=== PATIENT | female | born 1995 | race Caucasian/White ===

== ENCOUNTER 2021-10-11 18:50 | Observation (INO) ==
[2021-10-11 20:34] LABS: Bilirubin,Urine Negative (Negative); Blood,Urine Negative (Negative); Clarity,Urine Clear (Clear); Color,Urine Yellow (Yellow); Glucose,Urine (UA) Normal (Normal); Ketones,Urine Negative (Negative); Leukocyte Esterase,Urine Negative (Negative); Mucus,Urine Few per lpf (None-Few); Nitrite,Urine Negative (Negative); Protein,Urine 30 mg/dL (Neg-Trace); RBC,Urine 0-3 per hpf (0-3); Specific Gravity,Urine 1.027 (1.010-1.025); Squamous Epithelial Cell,Urine Few per hpf (None-Few); Urobilinogen,Urine Normal (Normal); WBC,Urine 0-3 per hpf (0-3)
[2021-10-11 21:26] LABS: Basophils % 0.2 %; Eosinophils % 0.5 %; Hematocrit 40.4 % (35.3-44.9); Hemoglobin 13.8 g/dL (11.5-15.4); Immature Granulocytes % 0.2 % (0-4); Lymphocytes # 1.6 K/mcL (0.6-4.6); Lymphocytes % 18.7 %; Mean Corpuscular HGB Conc 34.2 g/dL (31.6-35.5); Mean Corpuscular Hemoglobin 30.4 pg (28.0-33.3); Mean Platelet Volume 9.1 fL (9.4-12.4); Monocytes # 0.7 K/mcL (0.0-1.3); Monocytes % 8.3 %; Platelet Count 294 K/mcL (140-400); Red Blood Count 4.54 M/mcL (3.82-4.97); Red Cell Distribution Width 11.7 % (11.5-14.5); Segmented Neutrophils % 72.1 %; White Blood Count 8.3 K/mcL (4.3-11.1)
[2021-10-11 21:46] LABS: Alanine Aminotransferase 39 Units/L (7-52); Albumin 4.6 g/dL (3.5-5.7); Albumin/Globulin Ratio 1.4 (1.1-2.2); Alkaline Phosphatase 61 Units/L (34-104); Aspartate Amino Transferase 29 Units/L (13-39); BUN/Creatinine Ratio 11 (6-26); Bilirubin,Total 0.3 mg/dL (0.3-1.0); Blood Urea Nitrogen 7 mg/dL (6-20); Calcium 9.7 mg/dL (8.6-10.3); Carbon Dioxide 25 mEq/L (23-29); Chloride 105 mEq/L (98-107); Globulin 3.2 g/dL (2.4-3.5); Glucose 90 mg/dL (70-105); Osmolality,Calculated 282 (280-300); Potassium 3.6 mEq/L (3.5-5.1); Sodium 137 mEq/L (136-145); Total Protein 7.8 g/dL (6.4-8.9); eGFR For African Americans > 60 (> 60); eGFR For Non-African Americans > 60 (> 60)
[2021-10-11] MEDS ORDERED: Isovue-370 500 ML BOTTLE IVP ONE (21:59)
[2021-10-11] MEDS ORDERED: Ketorolac 30 MG/ML VIAL IVP ONE (21:59)
[2021-10-11 22:17] LABS: Bilirubin,Indirect 0.3 mg/dL (0.0-1.0)
[2021-10-12] MEDS ORDERED: GI Cocktail 40 ML EACH PO ONE (00:41)
[2021-10-12] MEDS ORDERED: Pantoprazole 40 MG VIAL IVP ONE (01:05)
[2021-10-12 01:09] LABS: INR 1.2; Prothrombin Time 13.3 Seconds (9.4-12.1)
[2021-10-12 02:08] LABS: Influenza A PCR Negative (Negative); Influenza B PCR Negative (Negative); Resp. Syncytial Virus PCR Negative (Negative)
[2021-10-12 02:09] LABS: SARS-CoV-2 by PCR (In House) Negative (Negative)
[2021-10-12] MEDS ORDERED: Dextrose 4 GM Chewable Tablets PO PRN ×2 (02:12)
[2021-10-12] MEDS ORDERED: *HR* Dextrose 50 % in Water (Syg) 50 ML SYRINGE IVP PRN (02:12)
[2021-10-12] MEDS ORDERED: D5% in Water 1,000 ML IVC PRN (02:12)
[2021-10-12] MEDS ORDERED: Saliva Stimulant 44.3ml BOTTLE PO PRN (02:36)
[2021-10-12] MEDS ORDERED: Morphine Sulfate 2 MG/ML SYRINGE IVP ONE (02:54)
[2021-10-12] MEDS: 0.9 % Sodium Chloride 1,000 ML IVC SCH ×2 (03:01→12:00)
[2021-10-12] MEDS ORDERED: Ondansetron 4 MG/2 ML VIAL IVP PRN ×2 (03:05→09:00)
[2021-10-12] MEDS ORDERED: Ondansetron 4 MG/2 ML VIAL IVP STA (03:05)
[2021-10-12] MEDS ORDERED: Melatonin 3 MG TABLET PO PRN (04:28)
[2021-10-12] MEDS ORDERED: Acetaminophen 325 MG TABLET PO PRN (04:28)
[2021-10-12] MEDS ORDERED: Naloxone 0.4 MG/ML INJ IVP PRN (04:28)
[2021-10-12 06:36] LABS: Hematocrit 35.1 % (35.3-44.9); Mean Corpuscular HGB Conc 34.2 g/dL (31.6-35.5); Mean Corpuscular Hemoglobin 30.5 pg (28.0-33.3); Mean Corpuscular Volume 89.1 fL (83.0-100.0); Mean Platelet Volume 9.1 fL (9.4-12.4); Platelet Count 252 K/mcL (140-400); Red Blood Count 3.94 M/mcL (3.82-4.97); Red Cell Distribution Width 11.8 % (11.5-14.5); White Blood Count 6.7 K/mcL (4.3-11.1)
[2021-10-12 06:52] LABS: BUN/Creatinine Ratio 12 (6-26); Blood Urea Nitrogen 7 mg/dL (6-20); Calcium 8.7 mg/dL (8.6-10.3); Carbon Dioxide 27 mEq/L (23-29); Chloride 106 mEq/L (98-107); Glucose 84 mg/dL (70-105); Magnesium 1.9 mg/dL (1.6-2.6); Osmolality,Calculated 281 (280-300); Phosphorous 3.2 mg/dL (2.7-4.5); Potassium 3.6 mEq/L (3.5-5.1); Sodium 137 mEq/L (136-145); eGFR For African Americans > 60 (> 60); eGFR For Non-African Americans > 60 (> 60)
[2021-10-12] MEDS ORDERED: Chlorhexidine Rinse 15 ML MOUTHWASH MM SCH (09:00)
[2021-10-12 11:08] VITALS: TEMP 98.2
[2021-10-12] MEDS ORDERED: Pantoprazole 40 MG VIAL IVP SCH (12:00)
[2021-10-12] MEDS ORDERED: Lidocaine -MPF 2% 2 ML VIAL ONE (12:41)
[2021-10-12] MEDS ORDERED: *HR* Midazolam HCl 2 MG/2 ML VIAL ONE (12:48)
[2021-10-12 14:25] VITALS: BP 123/84; PULSE 60; O2SAT 97
== END 2021-10-12 16:20 | disposition home or self-care (01) ==
LOC: 3BNU 18:50 → EMEROOARM 18:50 → SUATTDRO 10-12 01:03 → 3BNU 10-12 01:35
PROVIDERS: ADMIT Internal Medicine; ATTEND Registered Nurse
PROC: ENDOEBX (2021-10-12 13:00)